=== PATIENT | female | born 1975 | race Caucasian/White ===

== ENCOUNTER 2019-01-17 10:49 | Emergency (ER) | payer OTHER ==
[~2019-01-17] VITALS: Ht 165.1 cm; Wt 53.8 kg
[2019-01-17 10:58] VITALS: BP 127/79
--- NOTE | 2019-01-17 11:15 | NUR ---
c/o Laceration to rt side head, s/p hit leg of bed moving. no loc/ko. Was lightheaded after the injury but denies dizzy/lightheaded now. States a lot of blood loss. No active bleeding at this time. Lac obscured by hair but appears to be less than 2cm in length. Denies vision changes. PERRJAMIN. Equal hand strength b/l. Pt states she feels "well" now. hx-none meds-none nka tet-2017 pain Addendum: 01/17/19 at 1126 by FLAVIO states throbbing sensation at right side head, but denies pain
--- NOTE | 2019-01-17 11:20 | NUR ---
dr ferguson evaluating pt at bedside
--- NOTE | 2019-01-17 11:26 | NUR ---
Dorothy lopez in [facility] - 01/17/19 at 1126 by FLAVIO states throbbing sensation at right side head, but denies pain
[2019-01-17] MEDS ORDERED: ACETAMINOPHEN EXTRA STRENGTH 500 MG TAB PO ONE (11:30)
[2019-01-17] MEDS ORDERED: LIDOCAINE/EPI 1% 1:100000 20 ML VIAL INJ ONE (12:50)
--- NOTE | 2019-01-17 12:57 | NUR ---
DR CRAIG WITH PATIENT AT BEDSIDE
[2019-01-17 13:33] VITALS: BP 118/74
== END 2019-01-17 13:31 | disposition home or self-care (01) ==
LOC: MED 10:49
DX: S01.01XA Laceration without foreign body of scalp, initial encounter (principal); W20.8XXA Other cause of strike by thrown, projected or falling object, initial encounter; Y93.89 Activity, other specified; Y92.89 Other specified places as the place of occurrence of the external cause; Y99.8 Other external cause status
CPT/HCPCS: 12001; 81025; 99283; J2001